=== PATIENT | female | born 1950 | race Caucasian/White ===

== ENCOUNTER 2024-09-08 21:13 | Inpatient (IN) | payer MEDICARE, MEDICAID, SELFPAY ==
[2024-09-08] VITALS (10 sets, daily range): BP systolic 93–118; BP diastolic 56–65; BMI 20.8
[2024-09-08 17:23] LABS: ALT (SGPT) 43 U/L (0-35); AST (SGOT) 42 U/L (14-36); Albumin 3.5 g/dl (3.5-5.0); Alkaline Phosphatase 50 U/L (38-126); Blood Urea Nitrogen 37 mg/dl (7-17); Calcium 9.1 mg/dl (8.4-10.2); Carbon Dioxide 23 mmol/L (22-30); Chloride 101 mmol/L (98-107); Estimated Creatinine Clearance 67 ml/min; Glucose 203 mg/dl (70-99); Potassium 3.9 mmol/L (3.5-5.1); Sodium 133 mmol/L (135-145); Total Protein 6.1 g/dl (6.3-8.2); eGFR > 60.00
[2024-09-08 17:29] LABS: COVID-19 Antigen Negative (Negative)
--- NOTE | 2024-09-08 17:48 | ED.GENMED ---
History of Present Illness
<Anaid Celestin MD - Last Filed: 09/08/24 17:50>
General
Chief Complaint: Change in Mental Status
Time Seen by Provider: 09/08/24 17:29
<Alla Novoa PA-C - Last Filed: 09/09/24 00:39>
General
Source: [facility]
Exam Limitations: altered mental status
Nursing documentation reviewed up to this point in time: agreed with
History of Present Illness
History of Present Illness:
Patient is a 74-year-old female with history schizophrenia, [place]'s disease presenting to the emergency department via nursing facility for evaluation of altered mental status and fever. Apparently patient was not at her baseline mental status
morning and was found to have a temp of 103.1F. Patient seemed much weaker than usual. In addition�she was incontinent to urine which is not typical for patient.
I did personally call and speak to the nursing facility given patient is unable to contribute to history given altered mental status. They deny noticing any recent cough. Patient has not been complaining of any chest pain or shortness of breath.
No abdominal pain complaints.
Past History
<Anaid Celestin MD - Last Filed: 09/08/24 17:50>
Past History
ED Past Medical History: Other (He has a history of mild dementia)
ED Past Surgical History: None
Social History
Personal: Single
Living: alone
Employment: Retired
Review of Systems
<Alla Novoa PA-C - Last Filed: 09/09/24 00:39>
Review of Systems
Allergies reviewed?: Yes
All Other Systems: ROS reviewed and negative except as documented in HPI and ROS
Phy Exam
<Alla Novoa PA-C - Last Filed: 09/09/24 00:39>
Physical Exam
Physical Exam:
Vitals: Hypoxic, febrile.
General: Patient is frail appearing, no acute distress
Skin: Warm and dry, no rashes or lesions
Head: Normocephalic, atraumatic
Eyes: Sclera nonicteric. EOMs intact. No nystagmus.
Throat: Dry oral mucosa. protecting airway
Neck: Normal ROM, no cervical spine tenderness, no meningismus
Cardiac: Regular rate and rhythm, no murmurs.
Pulm: Hypoxic with O2 of 88 on room air. Placed on 6 L nasal cannula. Coarse lung sounds.
Abdomen: Abdomen soft. No abdominal tenderness.
Extremities: No evidence of cyanosis or edema. Palpable peripheral pulses in bilateral upper and lower extremity
Neuro: AAOx3. Limited speech. Follows some commands. Moving all extremities.
Psychiatric: Normal affect.
Sepsis
<Anaid Celestin MD - Last Filed: 09/08/24 17:50>
Sepsis Screen
Sepsis Screen: Possible Sepsis
Date: 09/08/24
Time: 17:48
<Alla Novoa PA-C - Last Filed: 09/09/24 00:39>
Sepsis Screening
Sepsis Assessment: Sepsis
Sepsis Screening: Lactate >2mmol/L and Worsening O2 Saturation
Sepsis Screen
Sepsis Screen: Sepsis
Date: 09/09/24
Time: 00:29
Course
<Anaid Celestin MD - Last Filed: 09/08/24 17:50>
Orders/Labs/Results
Orders:
Orders
09/08/24 16:45
COVID-19 Antigen Urgent
Source: Nasal Swab
Complete Blood Count/With Diff Urgent
Comprehensive Metabolic Panel Urgent
Manual Differential Urgent
Influenza A+B Rapid Molecular Urgent
NURIS Source: Nasal Swab
Specimen Description:
09/08/24 16:56
Chest [CR Chest - 2 Views ] Urgent
Comment:
Reason For Exam: sob
09/08/24 17:39
CT Head W/o Iv Contrast Urgent
Comment:
Reason For Exam: Altered mental status
Straight cath- Treatment ONCE
0.9% Sodium Chloride 1000 ml [Nss] 1,000 ml IV BOLUS
09/08/24 17:40
Electrocardiogram (*1) Urgent
Reason for Study: Fatigue / Weakness
EKG- Treatment ONCE
Acetaminophen [Tylenol] 1,000 mg PO NOW STA
09/08/24 17:45
Acetaminophen [Tylenol/Feverall] 650 mg RECTAL NOW STA
09/08/24 17:58
Lactic Acid Q4H
Comment: CANCEL 2nd LACTIC ACID IF 1st LACTIC ACID IS LESS THAN 2
Blood Culture Q30M
NURIS Source: Blood/Venous
Specimen Description:
Blood Culture Q30M
NURIS Source: Blood/Venous
Specimen Description:
09/08/24 20:08
Azithromycin 500 mg/250 ml [Zithromax Infusion] 500 mg in 250 ml IV NOW
CefTRIAXone [Rocephin] 1,000 mg IV NOW STA
09/08/24 20:14
0.9% Sodium Chloride 1000 ml [Nss] 1,000 ml IV BOLUS
09/08/24 20:50
Admit/Transfer Patient As Directed
Co-Sign Provider:
Level of Care: Inpatient admission
Assign to:: IMU- Intermediate Care
Physician / Group: Carlos
Diagnosis: Pneumonia, Sepsis
Reason for Hospitalization: Pneumonia, Sepsis
Expected length of stay greater than two midnights?: Yes
ELOS- Estimated Length of Stay in days: 3
I certify the patient meets the requirements for IP care: Yes
PRN Pain Medication Management As Directed
May give lesser potent ordered pain med per pt: Yes
preference::
Protocol:: Medication orders for pain may be administered in a
manner that supports deferring to patient preference
when the pt is:
- Requesting an ordered lesser potent pain medication.
Least to most potent pain medications are defined
as: acetaminophen < NSAID < tramadol < opioids
(morphine, oxycodone, hydromorphone).
- Requesting a lesser dose of the same medication IF
ORDERED.
- Requesting a less intrusive route of administration
if both routes are prescribed by the provider (PO <
IV).
09/08/24 20:51
Code Status As Directed
Resuscitation Status: Full Code
09/08/24 21:31
Urinalysis Reflex To Culture Urgent
Date Specimen was Collected: 09/08/24
Time Specimen was Collected: 21:29
09/08/24 21:35
Lactic Acid Q4H
Comment: CANCEL 2nd LACTIC ACID IF 1st LACTIC ACID IS LESS THAN 2
09/09/24 00:10
Acetaminophen [Tylenol] 650 mg PO Q4HPRN PRN
Albuterol Nebs [Ventolin Nebules] 2.5 mg INH R Q4HPRN PRN
CefTRIAXone [Rocephin] 1,000 mg IV Q24H
Dextrose 50%-Water [Dextrose 50% Syringe] 12.5 grams IV [id number] PRN
Glucagon [GlucaGen] 1 mg IM PRN PRN
Lactated Ringers [Lr] 1,000 ml IV 125 mls/hr
Mirtazapine [Remeron] 15 mg PO HS
Polyethylene Glycol Powder [Miralax] 17 grams PO DAILY PRN
Sennosides [Senokot] 17.2 mg PO HS
09/09/24 00:10
TSH Reflex To Free T4 Routine
Activity As Directed
Activity Level: Ambulate
With Assistance
Bedside Glucose Monitoring As Directed
Frequency: AC&HS
Additional Instructions:: Change to q6h if pt on TPN, tube feeding or not eating
Bladder Scan As Directed
Follow Bladder Retention/Intermittent Cath Algorithm?: Yes
PRN if no void in __ hours: 6
Frequency: Per Retention Algorithm
If Bladder Scan Result >: 400
then:: Straight cath
EKG with chest pain [ECG as needed] As Directed
ECG as needed for:: Chest Pain
I/O [Intake/ Output] As Directed
Frequency: Per unit guidelines
Neurological Checks As Directed
Frequency: q4h
Precautions As Directed
Type of Precautions: Aspiration
Straight Cath As Directed
Frequency: Per Retention Algorithm
Additional Instructions: straight cath as needed per acute urinary retention algorithm for 24 hrs
Additional Instructions: for bladder scan greater than 400 mL
Vital Signs As Directed
Frequency: Per unit guidelines
Weight As Directed
Frequency: Daily
Chest PT [Rx Chest Pt] [RESP] Routine
Special Instructions: BID
Oxygen Therapy [O2 Therapy] [RESP] Routine
Titrate/Wean O2 to maintain O2 sat greater than (%): 94
Ot Eval And Treat Routine
PT Consult [Pt Eval And Treat] Routine
Activity Level: Ambulate
With Assistance
Speech Therapy Eval & Treat Routine
DX Deep Vein Thrombosis Video Routine
09/09/24 06:00
EKG [Electrocardiogram (*1)] IN AM
Reason for Study: Chest Pain
Regular
Basic Metabolic Panel IN AM
Complete Blood Count/No Diff IN AM
Glycohemoglobin (HgbA1c) IN AM
LFT [Drzjg-Aoxy-Uatlwkr] IN AM
Lactic Acid IN AM
Magnesium IN AM
09/09/24 07:30
Insulin Aspart Corrective Low [Novolog Flexpen-Low Resistance] See Protocol SC AC
09/09/24 08:00
Doxycycline [Vibramycin] 100 mg PO Q12
Haloperidol [Haldol] 2 mg PO BID
09/09/24 18:00
Enoxaparin Sodium [Lovenox] 40 mg SC QPM
Abnormal Lab Results
09/08/24 09/08/24
16:45 17:58
WBC 12.0 H 10^3/uL
(4.8-10.8)
RBC 3.72 L 10^6/uL
(4.20-5.40)
Hgb 11.9 L g/dL
(12.0-16.0)
Hct 35.9 L %
(37.0-47.0)
MCH 32.0 H pg
(27.0-31.0)
MPV 10.8 H fL
(7.4-10.4)
Abs Neuts (Manual) 9.7 H 10^3/uL
(1.4-6.5)
Band Neutrophils 21 H %
(0-3)
Lymphocytes (Manual) 9 L %
(20-51)
Monocytes (Manual) 10 H %
(2-9)
Sodium 133 L mmol/L
(135-145)
BUN 37 H mg/dl
(7-17)
Glucose 203 H mg/dl
(70-99)
Lactic Acid 2.1 H mmol/L
(0.7-2.0)
AST 42 H U/L
(14-36)
ALT 43 H U/L
(0-35)
Total Protein 6.1 L g/dl
(6.3-8.2)
09/08/24 16:45
09/08/24 16:45
Vital Signs
Initial and Last Documented VS:
Initial Vital Signs
Pulse Resp BP
92 23 100/57
09/08/24 16:28 09/08/24 16:28 09/08/24 16:28
Last Documented Vital Signs
Temp Pulse Resp BP Pulse Ox
100.7 F H 78 28 110/72 94
09/09/24 00:12 09/09/24 00:07 09/09/24 00:07 09/09/24 00:07 09/09/24 00:07
<Alla Novoa PA-C - Last Filed: 09/09/24 00:39>
Orders/Labs/Results
Orders:
Orders
09/08/24 16:45
COVID-19 Antigen Urgent
Source: Nasal Swab
Complete Blood Count/With Diff Urgent
Comprehensive Metabolic Panel Urgent
Manual Differential Urgent
Influenza A+B Rapid Molecular Urgent
NURIS Source: Nasal Swab
Specimen Description:
09/08/24 16:56
Chest [CR Chest - 2 Views ] Urgent
Comment:
Reason For Exam: sob
09/08/24 17:39
CT Head W/o Iv Contrast Urgent
Comment:
Reason For Exam: Altered mental status
Straight cath- Treatment ONCE
0.9% Sodium Chloride 1000 ml [Nss] 1,000 ml IV BOLUS
09/08/24 17:40
Electrocardiogram (*1) Urgent
Reason for Study: Fatigue / Weakness
EKG- Treatment ONCE
Acetaminophen [Tylenol] 1,000 mg PO NOW STA
09/08/24 17:45
Acetaminophen [Tylenol/Feverall] 650 mg RECTAL NOW STA
09/08/24 17:58
Lactic Acid Q4H
Comment: CANCEL 2nd LACTIC ACID IF 1st LACTIC ACID IS LESS THAN 2
Blood Culture Q30M
NURIS Source: Blood/Venous
Specimen Description:
Blood Culture Q30M
NURIS Source: Blood/Venous
Specimen Description:
09/08/24 20:08
Azithromycin 500 mg/250 ml [Zithromax Infusion] 500 mg in 250 ml IV NOW
CefTRIAXone [Rocephin] 1,000 mg IV NOW STA
09/08/24 20:14
0.9% Sodium Chloride 1000 ml [Nss] 1,000 ml IV BOLUS
09/08/24 20:50
Admit/Transfer Patient As Directed
Co-Sign Provider:
Level of Care: Inpatient admission
Assign to:: IMU- Intermediate Care
Physician / Group: [facility]
Diagnosis: Pneumonia, Sepsis
Reason for Hospitalization: Pneumonia, Sepsis
Expected length of stay greater than two midnights?: Yes
ELOS- Estimated Length of Stay in days: 3
I certify the patient meets the requirements for IP care: Yes
PRN Pain Medication Management As Directed
May give lesser potent ordered pain med per pt: Yes
preference::
Protocol:: Medication orders for pain may be administered in a
manner that supports deferring to patient preference
when the pt is:
- Requesting an ordered lesser potent pain medication.
Least to most potent pain medications are defined
as: acetaminophen < NSAID < tramadol < opioids
(morphine, oxycodone, hydromorphone).
- Requesting a lesser dose of the same medication IF
ORDERED.
- Requesting a less intrusive route of administration
if both routes are prescribed by the provider (PO <
IV).
09/08/24 20:51
Code Status As Directed
Resuscitation Status: Full Code
09/08/24 21:31
Urinalysis Reflex To Culture Urgent
Date Specimen was Collected: 09/08/24
Time Specimen was Collected: 21:29
09/08/24 21:35
Lactic Acid Q4H
Comment: CANCEL 2nd LACTIC ACID IF 1st LACTIC ACID IS LESS THAN 2
09/09/24 00:10
Acetaminophen [Tylenol] 650 mg PO Q4HPRN PRN
Albuterol Nebs [Ventolin Nebules] 2.5 mg INH R Q4HPRN PRN
CefTRIAXone [Rocephin] 1,000 mg IV Q24H
Dextrose 50%-Water [Dextrose 50% Syringe] 12.5 grams IV [id number] PRN
Glucagon [GlucaGen] 1 mg IM PRN PRN
Lactated Ringers [Lr] 1,000 ml IV 125 mls/hr
Mirtazapine [Remeron] 15 mg PO HS
Polyethylene Glycol Powder [Miralax] 17 grams PO DAILY PRN
Sennosides [Senokot] 17.2 mg PO HS
09/09/24 00:10
TSH Reflex To Free T4 Routine
Activity As Directed
Activity Level: Ambulate
With Assistance
Bedside Glucose Monitoring As Directed
Frequency: AC&HS
Additional Instructions:: Change to q6h if pt on TPN, tube feeding or not eating
Bladder Scan As Directed
Follow Bladder Retention/Intermittent Cath Algorithm?: Yes
PRN if no void in __ hours: 6
Frequency: Per Retention Algorithm
If Bladder Scan Result >: 400
then:: Straight cath
EKG with chest pain [ECG as needed] As Directed
ECG as needed for:: Chest Pain
I/O [Intake/ Output] As Directed
Frequency: Per unit guidelines
Neurological Checks As Directed
Frequency: q4h
Precautions As Directed
Type of Precautions: Aspiration
Straight Cath As Directed
Frequency: Per Retention Algorithm
Additional Instructions: straight cath as needed per acute urinary retention algorithm for 24 hrs
Additional Instructions: for bladder scan greater than 400 mL
Vital Signs As Directed
Frequency: Per unit guidelines
Weight As Directed
Frequency: Daily
Chest PT [Rx Chest Pt] [RESP] Routine
Special Instructions: BID
Oxygen Therapy [O2 Therapy] [RESP] Routine
Titrate/Wean O2 to maintain O2 sat greater than (%): 94
Ot Eval And Treat Routine
PT Consult [Pt Eval And Treat] Routine
Activity Level: Ambulate
With Assistance
Speech Therapy Eval & Treat Routine
DX Deep Vein Thrombosis Video Routine
09/09/24 06:00
EKG [Electrocardiogram (*1)] IN AM
Reason for Study: Chest Pain
Regular
Basic Metabolic Panel IN AM
Complete Blood Count/No Diff IN AM
Glycohemoglobin (HgbA1c) IN AM
LFT [Fkwje-Ayzx-Hdorjeo] IN AM
Lactic Acid IN AM
Magnesium IN AM
09/09/24 07:30
Insulin Aspart Corrective Low [Novolog Flexpen-Low Resistance] See Protocol SC AC
09/09/24 08:00
Doxycycline [Vibramycin] 100 mg PO Q12
Haloperidol [Haldol] 2 mg PO BID
09/09/24 18:00
Enoxaparin Sodium [Lovenox] 40 mg SC QPM
Abnormal Lab Results
09/08/24 09/08/24
16:45 17:58
WBC 12.0 H 10^3/uL
(4.8-10.8)
RBC 3.72 L 10^6/uL
(4.20-5.40)
Hgb 11.9 L g/dL
(12.0-16.0)
Hct 35.9 L %
(37.0-47.0)
MCH 32.0 H pg
(27.0-31.0)
MPV 10.8 H fL
(7.4-10.4)
Abs Neuts (Manual) 9.7 H 10^3/uL
(1.4-6.5)
Band Neutrophils 21 H %
(0-3)
Lymphocytes (Manual) 9 L %
(20-51)
Monocytes (Manual) 10 H %
(2-9)
Sodium 133 L mmol/L
(135-145)
BUN 37 H mg/dl
(7-17)
Glucose 203 H mg/dl
(70-99)
Lactic Acid 2.1 H mmol/L
(0.7-2.0)
AST 42 H U/L
(14-36)
ALT 43 H U/L
(0-35)
Total Protein 6.1 L g/dl
(6.3-8.2)
09/08/24 16:45
09/08/24 16:45
Vital Signs
Initial and Last Documented VS:
Initial Vital Signs
Pulse Resp BP
92 23 100/57
09/08/24 16:28 09/08/24 16:28 09/08/24 16:28
Last Documented Vital Signs
Temp Pulse Resp BP Pulse Ox
100.7 F H 78 28 110/72 94
09/09/24 00:12 09/09/24 00:07 09/09/24 00:07 09/09/24 00:07 09/09/24 00:07
<Alla Novoa PA-C - Last Filed: 09/09/24 00:39>
MDM/Problems Addressed
Differential Diagnosis Includes:
Not limited to: Sepsis, septic shock, pneumonia, UTI, viral illness, etc.
MDM/Problems Addressed:
74 old female with dementia presenting due to altered mental status and fever. Patient febrile to 100.7 F on arrival, tachypneic and hypoxic on room air. On exam�patient is alert and oriented x 3. She follows basic commands. Abdomen is soft and
nontender. She does have dry oral mucosa. She was placed on 6 L nasal cannula and is oxygenating at 95%. She does have coarse lung sounds throughout. Heart regular rate and rhythm. Concern for likely infectious source and possible sepsis.
Blood pressure is stable. Will give IV fluids. Patient was given 650MG rectal Tylenol. Will check basic labs, lactic, viral swabs. Will send blood cultures. Will obtain urinalysis, chest x-ray, and head CT given altered mental status. Do not
suspect CVA. Patient will require admission. Will closely monitor and reassess.
Update: Labs reviewed. Mild leukocytosis of 12. Chemistry does show hyperglycemia without any other clinically significant abnormalities. Initial lactic was mildly elevated 2.1. repeat pending. Chest x-ray resulted which shows right basilar
opacity suspicious for pneumonia. Likely source of infection. Patient does meet sepsis criteria. EKG shows no QT prolongation. Will initiate IV Rocephin and azithromycin in emergency department. Patient given second liter of IV fluids.
Although suspect pulmonary source/will still obtain urinalysis to rule out in camera urinary tract infection. Head CT without acute abnormalities.
Patient admitted to hospitalist service in stable condition for sepsis secondary to pneumonia. Antibiotics initiated emergency department and 2 L of IV fluids given.
Chronic conditions affecting care:
Dementia
Acute Exacerbation and/or Progression of Chronic Illness:
N/A
<Alla Novoa PA-C - Last Filed: 09/09/24 00:39>
*Radiology
Radiology exam reviewed: preliminary read by ED provider (Right basilar opacity) and radiology read reviewed
*Pulse Oximetry
Patient hypoxic: yes (Placed on 6 L nasal cannula)
*EKG
Interpreted by ED Provider?: Yes
EKG Intrepretation Date: 09/08/24
Interpretation: normal
Comparison EKG: changes noted
Heart Rate: 81
Rate: normal
Rhythm: sinus
[place]: normal axis
QRS Pattern: normal QRS
Ischemia: non-specific ST changes
*Min[employer]er Interpretation
Rate: normal
Interpretation: normal
Heart Rate: 88
Rhythm: sinus
*Critical Care Note
Total Time (30-74mins, 75-104mins- exclusive of procedures): Not Applicable
<Alla Novoa PA-C - Last Filed: 09/09/24 00:39>
Patient Management
Discussion with other providers: Hospitalist
ED Attending Note
<Anaid Celestin MD - Last Filed: 09/08/24 17:50>
ED Attending Note
Patient seen and examined by attending physician: Yes
I performed the substantive portion of visit, reviewed & personally made and approve the management plan that is documented in note by myself or HOLLIE.: Yes
ED Attending Note:
I have seen and evaluated the patient with a [id number] encounter. I have spoken to the [PA] and involved in the medical history, the physical exam, medical decision making.
Evaluation and management service: agree unless noted differently below.
Results interpretation: agree unless noted differently below.
74-year-old woman with history of dementia presenting to the emergency department fever and change in mental status. Per medics the call was for altered mental status when they arrived patient was febrile and confused. Patient herself has no
complaints. Vital signs here notable for blood pressure in the low 100s. Exam does show woman who is ANO x 3 and does have coarse breath sounds in all lung foster. She does have dry oral mucosa. Differential could beseptic from pneumonia versus
UTI. Given that she does not have any focal neurodeficits less likely to be CVA. Will complete broad workup. Patient will need admission. Patient's CODE STATUS per paperwork is full code.
-
Portions of this chart may have been created with voice recognition software.� Occasional wrong word or��sound alike� substitutions may have occurred due to the inherent limitations of voice recognition software.
Discharge Plan
Departure
Patient Disposition: Admit
Date of Disposition: 09/08/24
Time of Disposition: 20:13
Presentation/result/management discussed w/ accepting MD/DO: Hospitalist
Covid-19: Negative COVID-19
Discharge Problem:
Sepsis, Community acquired pneumonia of right lung, Hypoxia
Interventions
Interventions:
*Risk Screen - Suicide Last Done: 09/08/24 16:38
*General Assessment Last Done: 09/08/24 17:29
*Neglect/Abuse Screening Last Done: 09/08/24 17:29
ED- Fall Risk Assessment Last Done: 09/08/24 17:29
*ED COVID-19 Vaccine History Last Done: 09/08/24 17:29
*Nursing Disposition Last Done: 09/08/24 23:21
ED- Neurological Assessment Last Done: 09/08/24 17:29
ED Swallowing Screen Last Done: 09/08/24 20:41
Discharge Date and Time
Discharge Date/Time: 09/09/24 00:13
[2024-09-08] MEDS: TYLENOL/FEVERALL 650 MG RECTAL (17:52)
[2024-09-08] MEDS: NSS 1000 IV ×2 (17:56→20:19)
[2024-09-08 18:02] LABS: Absolute Neutrophils -Man Diff 9.7 10^3/uL (1.4-6.5); Band Neutrophils 21 % (0-3); Hematocrit 35.9 % (37.0-47.0); Hemoglobin 11.9 g/dL (12.0-16.0); Lymphocytes 9 % (20-51); Mean Corp Hgb Conc. 33.1 g/dL (33.0-37.0); Mean Corpuscular Volume 96.5 fL (81.0-99.0); Mean Platelet Volume 10.8 fL (7.4-10.4); Monocytes 10 % (2-9); Normal RBC Morphology Yes; Platelet Count 168 10^3/uL (130-400); Platelets Checked Yes; Red Blood Cell Count 3.72 10^6/uL (4.20-5.40); Red Cell Dist. Width 13.2 % (11.5-14.5); Segmented Neutrophils 60 % (42-75); Total Cells Counted 100
[2024-09-08 18:19] LABS: Lactic Acid 2.1 mmol/L (0.7-2.0)
--- NOTE | 2024-09-08 20:19 | EDRN ---
RN attempted ordered straight cath. after infusion of first IV bolus. RN able to pass catheter w/o resistance, but no urine output. Prior RN had same issue. Pt.'s perineal area cleansed thoroughly, will attempt clean catch urine collection when pt.
reports need to urinate.
[2024-09-08] MEDS: ROCEPHIN 1000 MG IV (20:27)
--- NOTE | 2024-09-08 20:29 | HPS.HSE ---
Addendum entered and electronically signed by Sandip Gonzalez DO 09/08/24 21:15:
Patient seen and examined independently. Agree with findings and plan as set forth by AMIRA Dodge.
Patient is a 74y F with PMH significant for movement disorder, ? Houghton's, ? schizophrenia who [facility] of altered mental status and fever. Patient is pleasantly confused here in the ED and denies any
complaints. She is noted to be febrile to 102.7 with hypoxemia and CXR showing R base infiltrate.
Ass:
RLL Pneumonia
Sepsis secondary to the above
Acute Hypoxemic Respiratory Insufficiency secondary to the above
Hyperglycemia
Movement Disorder
- ? Schizophrenia / Antipsychotic Effect
- ? Houghton's Disease
Plan:
Admit for further evaluation and treatment.
Abx for CAP.
Supportive care including O2 support, IVFs +/- pressors to maintain perfusion.
Continue Haldol 2mg BID.
Monitor on telemetry. No QT prolongation noted on initial EKG.
Would avoid other QT prolonging agents.
Follow for clinical improvement.
Monitor glucose, SSI if needed, check A1C.
Original Note:
Family Physician
-
Family Physician: Caleb Maguire
Chief Complaint
-
Change in mental status and fever
History of Present Illness
Patient is a 74-year-old female with past medical history significant for Huntingtons disease, hyperlipidemia, schizophrenia and anorexia who presented to [facility] ED for evaluation of change in mental status and fever. Emergency room staff spoke
with facility staff who reported patient mental status was not at baseline, she was febrile and and weaker than normal so she was sent in for evaluation. They also reported that patient had an episode of incontinence and she is normally not
incontinent. Patient is pleasantly confused and denies any symptoms or not feeling well.
Medical History
Past Medical History
Past Medical History: Reports Other
Additional Past Medical History:
Huntingtons disease
hyperlipidemia
schizophrenia
anorexia
Past Surgical History: Reports None
Social History
Unable to obtain full social history at this time due to: Dementia
Tobacco: Former Smoker
Alcohol: Former
Living: Jail
Family History
Family History: Not pertinent and Unable to Obtain
Allergies / Home Medications
Allergies reflects when Allergies were last updated in [employer].
Home Medications with original date entered in [employer]
Allergy/Medication List:
Allergies
Allergy/AdvReac Type Severity Reaction Status Date / Time
No Known Allergies Allergy Unverified 04/12/11 17:02
Home Medications
acetaminophen 325 mg tablet 650 mg PO Q4HPRN PRN mild pain/temp>101 09/08/24
bisacodyl 10 mg rectal suppository (Dulcolax (bisacodyl)) 10 mg WI DAILYPRN PRN if mom ineffective after 24 hrs 09/08/24
coal tar 0.5 % shampoo 1 applic topical TUFR 09/08/24
haloperidol 2 mg tablet 2 mg PO BID 09/08/24
haloperidol 5 mg tablet 5 mg PO DAILY 09/08/24
magnesium hydroxide 400 mg/5 mL oral suspension (Milk of Magnesia) 30 ml PO [id number] PRN no bm in 3 days 09/08/24
mirtazapine 15 mg tablet (Remeron) 15 mg PO HS 09/08/24
sodium phosphates 19 gram-7 gram/118 mL enema (Fleet Enema) 118 ml WI DAILYPRN PRN constipation 09/08/24
Review of Systems
-
Unable to obtain full review of systems at this time due to: Dementia
Constitutional: Reports Fever
EENT: Reports No Symptoms
Respiratory: Reports No Symptoms
Cardiac: Reports No Symptoms
Abdomen/GI: Reports No Symptoms
: Reports No Symptoms
Musculoskeletal: Reports No Symptoms
Skin: Reports No Symptoms
Neurological: Reports Other (change in mental status )
Endocrine: Reports No Symptoms
Hematologic/Lymphatic: Reports No Symptoms
Psych: Reports No Symptoms
Physical Exam
Vital Signs
Vital Signs
Temp Pulse Resp BP Pulse Ox
102.7 F H 74 31 93/56 96
09/08/24 16:38 09/08/24 20:15 09/08/24 17:45 09/08/24 20:06 09/08/24 20:15
Physical Exam
General: Well Developed, Well Nourished, No Apparent Distress, Comfortable and Conversant
HEENT: NormoCephalic, Moist mucous membranes, Atraumatic, [place] Conjunctivae, Nose Appears Normal and Ears Appear Normal
Respiratory: Clear, Crackles and Non Labored Respirations
Cardiac: S1/S2 and Regular Rhythm; No Murmur, Rub or Gallop
Breast: Deferred by me
GI: Soft, Non Tender, Non Distended and Normal Bowel Sounds; No Organomegaly
Rectal: Deferred by Provider
Genito-urinary: Deferred by me
Musculoskeletal: No Clubbing, No Cyanosis and No Edema
Skin: No Rash
Neuro: Awake, Alert and Nonfocal/grossly intact
Hematologic/Lymphatic: No Lymphadenopathy
Psych: Calm and Intact Judgment/Insight
Laboratory Results
-
09/08/24 16:45
09/08/24 16:45
Laboratory Results
Lactic Acid 2.1 mmol/L (0.7-2.0) H 09/08/24 17:58
Total Bilirubin 1.0 mg/dl (0.2-1.3) 09/08/24 16:45
AST 42 U/L (14-36) H 09/08/24 16:45
ALT 43 U/L (0-35) H 09/08/24 16:45
Alkaline Phosphatase 50 U/L (38-126) 09/08/24 16:45
Data Reviewed
-
Diagnostic Radiology: Report Reviewed by me (CXR: Moderate right basilar pneumonia)
CT Scan: Report Reviewed by me (Head CT: There are no focal or acute intracranial abnormalities There is moderate diffuse cortical and cerebellar atrophy)
Medical Tests (Nuc Med, Echo, EKG etc): Report Reviewed by me (CXR: NORMAL SINUS RHYTHM NONSPECIFIC T WAVE ABNORMALITY)
Lab Data: Labs Reviewed by me
Impression/Plan
-
IMPRESSION/PLAN:
#Sepsis 2/2 Pneumonia
WBC 12.0, Lactic 2.1, T 102.7, BP 93/56
CXR: Moderate right basilar pneumonia
Head CT: There are no focal or acute intracranial abnormalities
There is moderate diffuse cortical and cerebellar atrophy
- Admit to IMU
- Blood cultures and UA pending
- Covid and Influenza negative
- trend Lactic
- PRN Albuterol Nebs
- IV Ceftriaxone
- PO Doxycycline
- IVF
#Huntingtons disease
#schizophrenia
- continue haloperidol and mirtazapine
#hyperlipidemia
#anorexia
Code Status: Full Code
DVT Prophylaxis: Lovenox Sq
[2024-09-08] MEDS: ZITHROMAX INFUSION 250 IV (20:37)
[2024-09-08 21:37] LABS: Urine Albumin Trace (Neg - Trace); Urine Bilirubin Negative (Negative); Urine Character Clear (Clear); Urine Color Yellow; Urine Glucose Negative (Negative); Urine Ketone Negative (Negative); Urine Leukocyte Negative (Negative); Urine Nitrite Negative (Negative); Urine Occult Blood Trace (Negative); Urine Urobilinogen Negative (Neg - 1+)
[2024-09-08 21:44] LABS: Urine Bacteria Few (Negative); Urine Red Blood Cell 0-2 /HPF (0-2); Urine Squamous Cell 0-2 /LPF (Few); Urine White Cell 0-2 /HPF (0-5)
[2024-09-08 21:55] LABS: Lactic Acid 0.9 mmol/L (0.7-2.0)
[2024-09-09] VITALS (12 sets, daily range): BP systolic 92–111; BP diastolic 54–72; BMI 17.7; BMI 17.9
[2024-09-09] MEDS: SENOKOT 17.2 MG PO ×2 (01:19→21:21)
[2024-09-09] MEDS: LR 1000 IV ×3 (01:20→17:41)
[2024-09-09] MEDS: REMERON 15 MG PO ×2 (01:20→21:20)
[2024-09-09 05:27] LABS: Hematocrit 35.3 % (37.0-47.0); Hemoglobin 11.2 g/dL (12.0-16.0); Mean Corp Hgb Conc. 31.7 g/dL (33.0-37.0); Mean Corpuscular Hgb 31.8 pg (27.0-31.0); Mean Corpuscular Volume 100.3 fL (81.0-99.0); Mean Platelet Volume 10.5 fL (7.4-10.4); Platelet Count 147 10^3/uL (130-400); Red Blood Cell Count 3.52 10^6/uL (4.20-5.40); Red Cell Dist. Width 13.2 % (11.5-14.5); White Blood Cell Count 10.9 10^3/uL (4.8-10.8)
[2024-09-09 05:40] LABS: ALT (SGPT) 43 U/L (0-35); AST (SGOT) 46 U/L (14-36); Albumin 2.9 g/dl (3.5-5.0); Alkaline Phosphatase 43 U/L (38-126); Blood Urea Nitrogen 19 mg/dl (7-17); Calcium 8.4 mg/dl (8.4-10.2); Carbon Dioxide 26 mmol/L (22-30); Chloride 108 mmol/L (98-107); Direct Bilirubin 0.1 mg/dl (0.0-0.4); Estimated Creatinine Clearance 78 ml/min; Glucose 110 mg/dl (70-99); Magnesium 2.2 mg/dl (1.6-2.3); Potassium 4.2 mmol/L (3.5-5.1); Sodium 138 mmol/L (135-145); Total Bilirubin 1.6 mg/dl (0.2-1.3); Total Protein 5.5 g/dl (6.3-8.2); eGFR > 60.00
[2024-09-09 06:08] LABS: TSH Reflex To Free T4 1.51 uIU/ml (0.47-4.68)
[2024-09-09] MEDS: HALDOL 2 MG PO ×2 (08:00→21:19)
[2024-09-09] MEDS: VIBRAMYCIN 100 MG PO ×2 (08:00→21:21)
[2024-09-09 08:36] LABS: Glycohemoglobin (HgbA1c) 5.4 % (4.0-5.6)
--- NOTE | 2024-09-09 08:55 | PTOTSP ---
Speech Language Pathology
Pt seen for clinical beside swallow evaluation. P.O. trials of puree and thin liquids via cup/straw provided. Difficulty with cup with difficulty closing lips effectively around cup wit resultant incoordination and coughing episode. No coughing
noted with puree or thin liquids via single straw sips. Pt declined regular solids, stating these would be too hard for her to chew. Pt with current RLL PNA.
Recommend:
(1) VSE
(2) Downgrade to IDDSI Level 4 (puree) and thin liquids
(3) Aspiration precautions: sit upright, slow rate, single sips, full supervision with assist as needed
(4) Meds crushed in puree as able
(5) [employer] PACKAGE AND BUNDLE SORTER CLERK to continue to follow
[2024-09-09] MEDS: ProAmatine 5 MG PO ×3 (09:00→17:43)
[2024-09-09 09:12] LABS: Glucose - Point of Care 99 mg/dl (70-99)
[2024-09-09] MEDS: NOVOLOG FLEXPEN-LOW RESISTANCE SC ×2 (09:46→13:27)
--- NOTE | 2024-09-09 10:27 | CM ---
CM following re: discharge planning.
Reviewed pt's chart, met with pt and spoke to pt's daughter Adwoa
Pt is a 74 year old female, admitted with primary dx of PNA, Sepsis.
Pt is not a great historian, stated she 'lives here'. Per daughter, pt has been a long-term care resident at [facility] since 2010, ambulates with a walker and uses a wheelchair. Pt is on Medicaid 15 day bed hold.
D/C plan: return back to [facility] for a long-term care.
CM will follow with discharge plan updates as hospitalization progresses
--- NOTE | 2024-09-09 10:50 | PTOTSP ---
Speech Language Pathology
VIDEOFLUOROSCOPIC SWALLOWING EXAMINATION (VSE) completed. Mod pharyngeal dysphagia noted. Pt typically with more than single swallow. After first swallow, collection of residue noted in vallecula and pyriform sinuses after thin liquids via cup,
but with subsequent swallow, this cleared. Otherwise, trace base of tongue and pyriform sinus residue noted intermittently.
Thin liquids via cup resulted in silent aspiration (PAS 8). Thin liquids via consecutive straw sips resulted in at least supraglottic penetration with suspected penetration to the level of the vocal folds (PAS 5). Difficult to view given residual
penetrated material. Cued cough weak and ineffective. No other penetration/aspiration noted.
Recommend:
(1) IDDSI Level 4 (Puree) and Mildly thick liquids
(2) Aspiration precautions: full supervision with assist as needed, slow rate, sit upright
(3) Meds crushed in puree as able
(4) VIOLIN MAKER HAND to continue to follow
[2024-09-09 12:21] LABS: Glucose - Point of Care 105 mg/dl (70-99)
--- NOTE | 2024-09-09 13:28 | W.PN.HOSP.TC ---
Today's Communication/Plan
-
Decrease IV fluid rate
Continue with antibiotic
Modified diet
Start midodrine
PT and OT
Assessment / Plan
Assessment / Plan
General: Well Developed, Well Nourished, No Apparent Distress, Comfortable and Conversant
HEENT: NormoCephalic, Moist mucous membranes, Atraumatic, [place] Conjunctivae, Nose Appears Normal and Ears Appear Normal
Respiratory: Clear, Crackles and Non Labored Respirations
Cardiac: S1/S2 and Regular Rhythm; No Murmur, Rub or Gallop
GI: Soft, Non Tender, Non Distended and Normal Bowel Sounds; No Organomegaly
Musculoskeletal: No Clubbing, No Cyanosis and No Edema
Skin: No Rash
Neuro: Awake, Alert and Nonfocal/grossly intact
Hematologic/Lymphatic: No Lymphadenopathy
Psych: Calm and Intact Judgment/Insight
#Sepsis 2/2 aspiration pneumonia -poa
CXR: Moderate right basilar pneumonia
Head CT: There are no focal or acute intracranial abnormalities There is moderate diffuse cortical and cerebellar atrophy
- Blood cultures in lab
- UA normal
- Covid and Influenza negative
- trend Lactic-wnl
- PRN Albuterol Nebs
- IV Ceftriaxone
- PO Doxycycline
- IVF. Decrease weight. Start patient on midodrine.
Dysphagia
-Diet downgraded to pur�ed diet. Status post video swallow evaluation recommending mildly thick liquid.
# Toxic metabolic encephalopathy likely secondary to sepsis versus dehydration versus worsening of psych disorder
-Monitor mentation. Continue with Haldol.
#Huntingtons disease
#schizophrenia
- continue haloperidol and mirtazapine
# Transaminitis likely secondary to sepsis
-Trend for now. If it abdominal pain check abdominal ultrasound
#hyperlipidemia
#anorexia
Code Status: Full Code
DVT Prophylaxis: Lovenox
Called daughter to update no response left voicemail
Anticipated Discharge: > 48 hours
Subjective/Interval History
-
Date of Service: September 09, 2024
no overnight events
on oxygen
BP low.
passed shallow eval earlier
called dtr but no response
Objective Data
-
Labs:
Laboratory Results
09/09/24
04:55
WBC 10.9 H
Hgb 11.2 L
Hct 35.3 L
Plt Count 147
Sodium 138
Potassium 4.2
Chloride 108 H
Carbon Dioxide 26
BUN 19 H
Creatinine 0.5 L
Glucose 110 H
Calcium 8.4
Total Bilirubin 1.6 H
AST 46 H
ALT 43 H
Alkaline Phosphatase 43
Vital Signs:
Vital Signs
Temp Pulse Resp BP Pulse Ox
99.0 F 67 19 98/62 95
09/09/24 04:59 09/09/24 12:00 09/09/24 12:00 09/09/24 12:00 09/09/24 12:43
Data Reviewed
-
Total Time Spent with Patient (in minutes): 55
[2024-09-09 13:37] LABS: Glucose - Point of Care 92 mg/dl (70-99)
[2024-09-09] MEDS: NOVOLOG FLEXPEN-LOW RESISTANCE 1 UNITS SC (17:41)
[2024-09-09] MEDS: LOVENOX 40 MG SC (17:43)
[2024-09-09 17:45] LABS: Glucose - Point of Care 153 mg/dl (70-99)
--- NOTE | 2024-09-09 17:49 | PTCARENOTE ---
see nursing flowsheet pt alert and awake this shift. VSE done by speech and pt cleared for puree diet. appetite is good. iv fluids infusing. o2 sat 95 on 3 liters o2.pt denies shortness of bhreath. occasional moist cough noted.
[2024-09-09] MEDS: FLUSH (NSS) 10 FLUSH IV ×2 (21:19→21:58)
[2024-09-09] MEDS: ROCEPHIN 1000 MG IV (21:19)
[2024-09-09] MEDS: STERILE WATER FOR INJECTION 10 ML IV (21:20)
[2024-09-09 22:35] LABS: Glucose - Point of Care 93 mg/dl (70-99)
[2024-09-10] VITALS (11 sets, daily range): BP systolic 101–143; BP diastolic 55–79; PULSE 77; O2SAT 93; BMI 17.9
--- NOTE | 2024-09-10 01:33 | PTCARENOTE ---
Assumed care for patient overnight, received report from RN. Pt AAOx3 able to answer all orientation questions, slow answers and slightly garbled speech. Pt has involuntary movements of extremities. O2 sat 94%, weaned to 2L NC. Lungs coarse with
rhonchi. Denies any SOB or increase WOB, no tachypnea. Pills given crushed in applesauce, one episode of coughing. Pt grossly incontinent of urine, pt saturated brief and pad. Full bed bath and perineal care done. Oral care done with suction mouth
care kit. Re-attempting a pure-wick. Pt states she is unable to tell us when she voids. Educated on the use of the call lewis. Pt appears to be sleeping comfortably in bed, tolerating frequent repositioning and turning. Call lewis is within reach.
[2024-09-10 04:46] LABS: % Basophils 0.2 % (0-2); % Eosinophils 0.6 % (0-6); % Immature Granulocytes 0.3 % (0-0.5); % Lymphocytes 22.9 % (20.5-51.1); % Monocytes 5.1 % (1.7-9.3); % Neutrophils 70.9 % (42.2-75.2); Absolute Lymphocytes 1.5 10^3/uL (1.2-3.4); Absolute Monocytes 0.3 10^3/uL (0.1-0.6); Absolute Neutrophils 4.6 10^3/uL (1.4-6.5); Hematocrit 37.2 % (37.0-47.0); Mean Corp Hgb Conc. 32.3 g/dL (33.0-37.0); Mean Corpuscular Hgb 31.7 pg (27.0-31.0); Mean Corpuscular Volume 98.4 fL (81.0-99.0); Mean Platelet Volume 10.6 fL (7.4-10.4); Nucleated Red Blood Cells % 0 %; Platelet Count 157 10^3/uL (130-400); Red Blood Cell Count 3.78 10^6/uL (4.20-5.40); White Blood Cell Count 6.5 10^3/uL (4.8-10.8)
[2024-09-10 05:15] LABS: ALT (SGPT) 57 U/L (0-35); AST (SGOT) 63 U/L (14-36); Albumin 2.9 g/dl (3.5-5.0); Alkaline Phosphatase 46 U/L (38-126); Blood Urea Nitrogen 17 mg/dl (7-17); Calcium 8.5 mg/dl (8.4-10.2); Carbon Dioxide 24 mmol/L (22-30); Chloride 109 mmol/L (98-107); Estimated Creatinine Clearance 78 ml/min; Glucose 103 mg/dl (70-99); Potassium 4.3 mmol/L (3.5-5.1); Sodium 140 mmol/L (135-145); Total Bilirubin 0.7 mg/dl (0.2-1.3); Total Protein 5.6 g/dl (6.3-8.2); eGFR > 60.00
[2024-09-10] MEDS: HALDOL 2 MG PO ×2 (08:37→19:54)
[2024-09-10] MEDS: ProAmatine 5 MG PO ×3 (08:37→17:52)
[2024-09-10] MEDS: NOVOLOG FLEXPEN-LOW RESISTANCE SC ×2 (08:37→12:08)
[2024-09-10] MEDS: VIBRAMYCIN 100 MG PO ×2 (08:37→20:04)
[2024-09-10 08:46] LABS: Glucose - Point of Care 97 mg/dl (70-99)
--- NOTE | 2024-09-10 10:58 | W.PN.HOSP.TC ---
Addendum entered and electronically signed by Benton Hernández MD 09/10/24 16:02:
updated daughter over the phone in details. She was appreciated for updates.
Daughter did state that patient was a chronic alcoholic and drank for approximately 40+ years. Explains patient abnormal LFTs
Original Note:
Today's Communication/Plan
-
IV abx
tx out of IMU
Monitor BP
trend lfts
Assessment / Plan
Assessment / Plan
General: Well Developed, Well Nourished, No Apparent Distress, Comfortable
HEENT: NormoCephalic, Moist mucous membranes, Atraumatic, , Nose Appears Normal and Ears Appear Normal
Respiratory: Clear, Labored Respirations
Cardiac: S1/S2 and Regular Rhythm; No Murmur, Rub or Gallop
GI: Soft, Non Tender, Non Distended and Normal Bowel Sounds; No Organomegaly
Musculoskeletal: No Clubbing, No Cyanosis and No Edema
Skin: No Rash
Neuro: Awake, Alert and Nonfocal/grossly intact
Hematologic/Lymphatic: No Lymphadenopathy
Psych: Calm and Intact Judgment/Insight
#Sepsis 2/2 aspiration pneumonia -poa
CXR: Moderate right basilar pneumonia
Head CT: There are no focal or acute intracranial abnormalities There is moderate diffuse cortical and cerebellar atrophy
- Blood cultures in lab-negative so far.
- UA normal
- Covid and Influenza negative
- trend Lactic-wnl
- PRN Albuterol Nebs
- IV Ceftriaxone
- PO Doxycycline
- DC further IVF. Start patient on midodrine.
Dysphagia
-Diet downgraded to pur�ed diet. Status post video swallow evaluation recommending mildly thick liquid.
# Toxic metabolic encephalopathy likely secondary to sepsis versus dehydration versus worsening of psych disorder
-Monitor mentation. Continue with Haldol. Seems at baseline. Not agitated.
#Huntingtons disease
#schizophrenia
- continue haloperidol and mirtazapine
# Transaminitis likely secondary to sepsis
-Trend for now. T.bili trended down. No abd pain or nausea or vomiting. No RUQ pain. Check RUQ u/s. Check GGT.
#hyperlipidemia
#anorexia
Code Status: Full Code
DVT Prophylaxis: Lovenox
Anticipated Discharge: Within 24 hours
Subjective/Interval History
-
Date of Service: September 10, 2024
oxygen was taken off by patient. O2 sats stable. plan to wean off oxygen
Objective Data
-
Labs:
Laboratory Results
09/10/24 09/10/24
04:26 04:27
WBC 6.5
Hgb 12.0
Hct 37.2
Plt Count 157
Sodium 140
Potassium 4.3
Chloride 109 H
Carbon Dioxide 24
BUN 17
Creatinine 0.6
Glucose 103 H
Calcium 8.5
Total Bilirubin 0.7
AST 63 H
ALT 57 H
Alkaline Phosphatase 46
Vital Signs:
Vital Signs
Temp Pulse Resp BP Pulse Ox
98.4 F 81 29 119/68 93
09/10/24 07:50 09/10/24 10:28 09/10/24 10:28 09/10/24 10:28 09/10/24 10:28
I&O
09/09/24 09/10/24 09/11/24
06:59 06:59 06:59
Intake Total 2600 / 2600
Output Total 1300 / 1300
Balance 1300 / 1300
Data Reviewed
-
Total Time Spent with Patient (in minutes): 55
[2024-09-10 11:59] LABS: GGTP 12 U/L (12-43)
[2024-09-10 12:15] LABS: Glucose - Point of Care 112 mg/dl (70-99)
[2024-09-10 16:24] LABS: Glucose - Point of Care 157 mg/dl (70-99)
--- NOTE | 2024-09-10 16:52 | PTCARENOTE ---
1410 Pt received from IMU in bed. Pt AAo to person and place. Pt reoriented to time, environment and staff. Personal items and call light within reach. Bed alarm armed and audible. No distress noted at this time.
[2024-09-10] MEDS: LOVENOX 40 MG SC (17:35)
[2024-09-10] MEDS: NOVOLOG FLEXPEN-LOW RESISTANCE 1 UNITS SC (17:44)
[2024-09-10] MEDS: ROCEPHIN 1000 MG IV (20:00)
[2024-09-10] MEDS: FLUSH (NSS) 1 FLUSH IV ×2 (20:00→20:01)
[2024-09-10] MEDS: STERILE WATER FOR INJECTION 10 ML IV (20:01)
[2024-09-10 21:43] LABS: Glucose - Point of Care 139 mg/dl (70-99)
[2024-09-10] MEDS: SENOKOT 17.2 MG PO (22:20)
[2024-09-10] MEDS: REMERON 15 MG PO (22:25)
[2024-09-11] VITALS (7 sets, daily range): BP systolic 69–135; BP diastolic 64–84; BMI 17.3
[2024-09-11 07:12] LABS: Glucose - Point of Care 92 mg/dl (70-99)
[2024-09-11] MEDS: NOVOLOG FLEXPEN-LOW RESISTANCE SC ×2 (07:37→11:44)
[2024-09-11] MEDS: VIBRAMYCIN 100 MG PO ×2 (07:39→20:57)
[2024-09-11] MEDS: ProAmatine 5 MG PO ×2 (07:40→17:30)
[2024-09-11] MEDS: HALDOL 2 MG PO ×2 (07:40→20:57)
--- NOTE | 2024-09-11 07:58 | PN.CDI ---
CDI
- -
CDI:
Physician Documentation Request
Admit Date: 09/08/24 21:13
Dear Doctor Betty,
Please review the following and provide your response in the progress notes.
Clinical Indicators:
Piano Case Maker, 09/09
#Initial assessment due to BMI: 17.9 (underweight).
#PMH: schizophrenia, huntingtons disease, HLD, anorexia
#Current BW: (09/09) 132 lbs 0.91 oz BMI: 17.9 (underweight)
Based on the above and your clinical assessment, please provide an associated diagnosis related to the BMI,...:
BMI, 17.9, underweight
Other(please specify
BMI < or = to 19
Underweight
Weight Loss
Cachectic
Anorexia
Use of terms such as suspected, likely, concern for, or probable (associated with a specific diagnosis that is being evaluated, monitored, or treated as if it exists) are acceptable and can be coded in the inpatient setting, when documented at the
time of discharge.
Thank you,
Carmen Sorensen RN BSN CCDS
CDI Specialist
please contact via tiger text
Please use your independent medical judgment in providing your response.
--- NOTE | 2024-09-11 08:04 | PN.CDI ---
CDI
- -
CDI:
Physician Documentation Request
Admit Date: 09/08/24 21:13
Dear Doctor Betty,
Please review the following and provide your response in the progress notes.
Clinical Indicators:
09/08, ED
Pulm: Hypoxic with O2 of 88 on room air. Placed on 6 L nasal cannula. Coarse lung sounds.
Selected Entries
09/08/24
16:55 09/08/24
18:28
Nasal Cannula flow liters per minute 6 6
Based on the above and your clinical assessment, please clarify which of the following accurately represents the patient's respiratory status:
Acute respiratory failure
Acute respiratory failure, POA, now resolved
Hypoxia
Other(please specify)
Additional information for Respiratory Failure:
Recognized criteria for Respiratory Failure (Source: [facility] Hospitalist Jul 2013)
Symptoms Please indicate type if known
1. Tachypnea, SOB, dyspnea Hypoxic
2. Use of accessory muscles Hypercapnic
3. Pallor or cyanosis Hypoxic and Hypercapnic
4. Anxiety or restlessness
5. Unable to speak in full sentences
Supplemental O2 of > 40% (5LPM) Intubation is not required
Use of terms such as suspected, likely, concern for, or probable (associated with a specific diagnosis that is being evaluated, monitored, or treated as if it exists) are acceptable and can be coded in the inpatient setting, when documented at the
time of discharge.
Thank you,
Carmen Sorensen PACKAGE DESIGNER CCDS
CDI Specialist
pl;ease contact via tiger text
Please use your independent medical judgment in providing your response.
[2024-09-11 08:09] LABS: Hematocrit 37.3 % (37.0-47.0); Hemoglobin 12.6 g/dL (12.0-16.0); Mean Corp Hgb Conc. 33.8 g/dL (33.0-37.0); Mean Corpuscular Hgb 32.2 pg (27.0-31.0); Mean Corpuscular Volume 95.4 fL (81.0-99.0); Mean Platelet Volume 10.3 fL (7.4-10.4); Platelet Count 188 10^3/uL (130-400); Red Blood Cell Count 3.91 10^6/uL (4.20-5.40); Red Cell Dist. Width 12.5 % (11.5-14.5); White Blood Cell Count 4.3 10^3/uL (4.8-10.8)
[2024-09-11 08:31] LABS: ALT (SGPT) 60 U/L (0-35); AST (SGOT) 52 U/L (14-36); Albumin 3.2 g/dl (3.5-5.0); Alkaline Phosphatase 55 U/L (38-126); Blood Urea Nitrogen 22 mg/dl (7-17); Calcium 8.4 mg/dl (8.4-10.2); Carbon Dioxide 27 mmol/L (22-30); Chloride 104 mmol/L (98-107); Estimated Creatinine Clearance 75 ml/min; Glucose 95 mg/dl (70-99); Potassium 4.1 mmol/L (3.5-5.1); Sodium 139 mmol/L (135-145); Total Bilirubin 0.8 mg/dl (0.2-1.3); Total Protein 6.1 g/dl (6.3-8.2); eGFR > 60.00
[2024-09-11 11:13] LABS: % Basophils 0.5 % (0-2); % Eosinophils 1.6 % (0-6); % Immature Granulocytes 0.5 % (0-0.5); % Lymphocytes 31.3 % (20.5-51.1); % Monocytes 6.1 % (1.7-9.3); Absolute Eosinophils 0.1 10^3/uL (0-0.7); Absolute Lymphocytes 1.3 10^3/uL (1.2-3.4); Absolute Monocytes 0.3 10^3/uL (0.1-0.6); Absolute Neutrophils 2.6 10^3/uL (1.4-6.5); Nucleated Red Blood Cells % 0 %
--- NOTE | 2024-09-11 11:22 | W.PN.HOSP.TC ---
Today's Communication/Plan
-
IRAD for thora
Cont with abx
Assessment / Plan
Assessment / Plan
General: Well Developed, Well Nourished, No Apparent Distress, Comfortable
HEENT: NormoCephalic, Moist mucous membranes, Atraumatic, , Nose Appears Normal and Ears Appear Normal
Respiratory: Clear, Labored Respirations
Cardiac: S1/S2 and Regular Rhythm; No Murmur, Rub or Gallop
GI: Soft, Non Tender, Non Distended and Normal Bowel Sounds; No Organomegaly
Musculoskeletal: No Clubbing, No Cyanosis and No Edema
Skin: No Rash
Neuro: Awake, Alert and Nonfocal/grossly intact
Hematologic/Lymphatic: No Lymphadenopathy
Psych: Calm and Intact Judgment/Insight
#Sepsis 2/2 aspiration pneumonia -poa
# Acute hypoxic respiratory failure, poa now resolved
CXR: Moderate right basilar pneumonia
Head CT: There are no focal or acute intracranial abnormalities There is moderate diffuse cortical and cerebellar atrophy
- Blood cultures in lab-negative so far.
- UA normal
- Covid and Influenza negative
- trend Lactic-wnl
- PRN Albuterol Nebs
- IV Ceftriaxone and switch to po on dc.
- PO Doxycycline
- DC further IVF. Start patient on midodrine with hold parameters.
Dysphagia
-Diet downgraded to pur�ed diet. Status post video swallow evaluation recommending mildly thick liquid.
#Possible left pleural effusion
Pleural effusion on abdominal ultrasound.
IRAD for thoracentesis. Labs ordered.
# Toxic metabolic encephalopathy likely secondary to sepsis versus dehydration versus worsening of psych disorder
-Monitor mentation. Continue with Haldol. Seems at baseline. Not agitated.
#Huntingtons disease
#schizophrenia
- continue haloperidol and mirtazapine
# Transaminitis likely secondary to sepsis and hx of severe alcohol abuse
-stable. T.bili normal. GGT normal. Alk phos normal. Abd US noted. Tolerating diet.
#hyperlipidemia
#anorexia
underweight
Code Status: Full Code
DVT Prophylaxis: Lovenox
update daughter over the phone in details on 09/10/24 and 09/11/24
Anticipated Discharge: 24 - 48 hours
Subjective/Interval History
-
Date of Service: September 11, 2024
on room air
states tolerating diet
states coughing has reduce significantly
Objective Data
-
Labs:
Laboratory Results
09/11/24
07:38
WBC 4.3 L
Hgb 12.6
Hct 37.3
Plt Count 188
Sodium 139
Potassium 4.1
Chloride 104
Carbon Dioxide 27
BUN 22 H
Creatinine 0.6
Glucose 95
Calcium 8.4
Total Bilirubin 0.8
AST 52 H
ALT 60 H
Alkaline Phosphatase 55
Vital Signs:
Vital Signs
Temp Pulse Resp BP Pulse Ox
97.9 F 66 17 135/84 92
09/11/24 11:21 09/11/24 11:21 09/11/24 11:21 09/11/24 11:21 09/11/24 11:21
I&O
09/10/24 09/11/24 09/12/24
06:59 06:59 06:59
Intake Total 2600 / 2600 360 / 360
Output Total 1300 / 1300
Balance 1300 / 1300 360 / 360
Data Reviewed
-
Total Time Spent with Patient (in minutes): 55
[2024-09-11 11:42] LABS: Glucose - Point of Care 91 mg/dl (70-99)
[2024-09-11] MEDS: ProAmatine PO (13:27)
[2024-09-11 14:58] LABS: LDH 249 U/L (120-246)
[2024-09-11 16:23] LABS: Glucose - Point of Care 162 mg/dl (70-99)
[2024-09-11] MEDS: NOVOLOG FLEXPEN-LOW RESISTANCE 1 UNITS SC (17:24)
[2024-09-11] MEDS: LOVENOX 40 MG SC (17:26)
[2024-09-11] MEDS: FLUSH (NSS) 1 FLUSH IV ×2 (20:52)
[2024-09-11] MEDS: REMERON 15 MG PO (20:56)
[2024-09-11] MEDS: ROCEPHIN 1000 MG IV (20:57)
[2024-09-11] MEDS: SENOKOT 17.2 MG PO (20:57)
[2024-09-11] MEDS: STERILE WATER FOR INJECTION 10 ML IV (20:57)
[2024-09-11 21:58] LABS: Glucose - Point of Care 96 mg/dl (70-99)
[2024-09-12 03:50] VITALS: BP 121/67
[2024-09-12 06:00] VITALS: BMI 20.6
[2024-09-12 07:13] VITALS: BP 111/68
[2024-09-12 07:50] LABS: ALT (SGPT) 49 U/L (0-35); AST (SGOT) 36 U/L (14-36); Albumin 3.2 g/dl (3.5-5.0); Alkaline Phosphatase 57 U/L (38-126); Blood Urea Nitrogen 24 mg/dl (7-17); Calcium 8.6 mg/dl (8.4-10.2); Carbon Dioxide 33 mmol/L (22-30); Chloride 104 mmol/L (98-107); Estimated Creatinine Clearance 56 ml/min; Glucose 100 mg/dl (70-99); Potassium 4.7 mmol/L (3.5-5.1); Sodium 140 mmol/L (135-145); Total Bilirubin 0.6 mg/dl (0.2-1.3); eGFR > 60.00
[2024-09-12 07:53] LABS: Glucose - Point of Care 90 mg/dl (70-99)
[2024-09-12 08:28] LABS: % Basophils 0.5 % (0-2); % Eosinophils 1.6 % (0-6); % Immature Granulocytes 0.5 % (0-0.5); % Lymphocytes 26.5 % (20.5-51.1); % Monocytes 6.9 % (1.7-9.3); Absolute Eosinophils 0.1 10^3/uL (0-0.7); Absolute Lymphocytes 1.6 10^3/uL (1.2-3.4); Absolute Monocytes 0.4 10^3/uL (0.1-0.6); Absolute Neutrophils 3.9 10^3/uL (1.4-6.5); Hematocrit 38.2 % (37.0-47.0); Hemoglobin 12.6 g/dL (12.0-16.0); Mean Corpuscular Hgb 32.1 pg (27.0-31.0); Mean Corpuscular Volume 97.2 fL (81.0-99.0); Mean Platelet Volume 10.4 fL (7.4-10.4); Nucleated Red Blood Cells % 0 %; Platelet Count 243 10^3/uL (130-400); Red Blood Cell Count 3.93 10^6/uL (4.20-5.40); Red Cell Dist. Width 12.7 % (11.5-14.5); White Blood Cell Count 6.1 10^3/uL (4.8-10.8)
[2024-09-12] MEDS: NOVOLOG FLEXPEN-LOW RESISTANCE SC ×3 (08:47→17:27)
[2024-09-12] MEDS: HALDOL 2 MG PO (08:52)
[2024-09-12] MEDS: VIBRAMYCIN 100 MG PO (08:53)
[2024-09-12] MEDS: ProAmatine PO (09:25)
--- NOTE | 2024-09-12 10:57 | W.PN.HOSP.TC ---
Today's Communication/Plan
-
dc
po abx
Assessment / Plan
Assessment / Plan
General: Well Developed, Well Nourished, No Apparent Distress, Comfortable
HEENT: NormoCephalic, Moist mucous membranes, Atraumatic, , Nose Appears Normal and Ears Appear Normal
Respiratory: Clear, Labored Respirations
Cardiac: S1/S2 and Regular Rhythm; No Murmur, Rub or Gallop
GI: Soft, Non Tender, Non Distended and Normal Bowel Sounds; No Organomegaly
Musculoskeletal: No Clubbing, No Cyanosis and No Edema
Skin: No Rash
Neuro: Awake, Alert and Nonfocal/grossly intact
Hematologic/Lymphatic: No Lymphadenopathy
Psych: Calm and Intact Judgment/Insight
#Sepsis 2/2 aspiration pneumonia -poa
# Acute hypoxic respiratory failure, poa now resolved
CXR: Moderate right basilar pneumonia
Head CT: There are no focal or acute intracranial abnormalities There is moderate diffuse cortical and cerebellar atrophy
- Blood cultures in lab-negative so far.
- UA normal
- Covid and Influenza negative
- trend Lactic-wnl
- PRN Albuterol Nebs
- IV Ceftriaxone and switch to po on dc.
- PO Doxycycline
- DC further IVF. Start patient on midodrine with hold parameters.
Dysphagia
-Diet downgraded to pur�ed diet. Status post video swallow evaluation recommending mildly thick liquid.
#Possible left pleural effusion
Pleural effusion on abdominal ultrasound.
IRAD for thoracentesis. Per IRAD- not enough fluid for thora on Chest US.
# Toxic metabolic encephalopathy likely secondary to sepsis versus dehydration versus worsening of psych disorder
-Monitor mentation. Continue with Haldol. Seems at baseline. Not agitated.
#Huntingtons disease
#schizophrenia
- continue haloperidol and mirtazapine
# Transaminitis likely secondary to sepsis and hx of severe alcohol abuse
-stable. T.bili normal. GGT normal. Alk phos normal. Abd US noted. Tolerating diet.
#hyperlipidemia
#anorexia
underweight
Code Status: Full Code
DVT Prophylaxis: Lovenox
update daughter over the phone in details on 09/10/24 and 09/11/24
More than 30 minutes spent in discharge including
Final examination of the patient
Summarizing hospital stay
Instructions for continuing care to all relevant caregivers
Preparation of discharge records, prescriptions, and referral forms
Total time spent (in minutes): 50
Anticipated Discharge: Today
Subjective/Interval History
-
Date of Service: September 12, 2024
on room air
denies severe cough
Objective Data
-
Labs:
Laboratory Results
09/12/24
06:20
WBC 6.1
Hgb 12.6
Hct 38.2
Plt Count 243 D
Sodium 140
Potassium 4.7
Chloride 104
Carbon Dioxide 33 H
BUN 24 H
Creatinine 0.8
Glucose 100 H
Calcium 8.6
Total Bilirubin 0.6
AST 36
ALT 49 H
Alkaline Phosphatase 57
Vital Signs:
Vital Signs
Temp Pulse Resp BP Pulse Ox
98.5 F 69 16 111/72 95
09/12/24 07:13 09/12/24 09:25 09/12/24 07:13 09/12/24 09:25 09/12/24 07:13
I&O
09/11/24 09/12/24 09/13/24
06:59 06:59 06:59
Intake Total 360 / 360 720 / 720
Balance 360 / 360 720 / 720
--- NOTE | 2024-09-12 11:01 | W.DCSUMMARY ---
Discharge Summary
Discharge Data
Date of Admission: 09/08/24
Date of Discharge: 09/12/24
-
Pending Results: No
Hospital Course
74-year-old female past medical history of [place] disease, schizophrenia, chronic alcohol abuse presenting from senior care with altered mental status and hypoxemia. Patient underwent imaging which showed right basilar pneumonia. CT head was
done no focal acute intercranial abnormality. There is a moderate diffuse cortical and cerebellar atrophy. Blood cultures in lab were negative. UA was normal. COVID influenza was negative. Lactic acid was within normal limits. Patient was
started on IV antibiotics. Patient was started on ceftriaxone and doxycycline. Patient was eval by speech and swallow and underwent video swallow evaluation which showed aspiration with thin liquids does pur�ed diet with mildly thick liquid was
consulted recommended. patient underwent abdominal ultrasound which showed suspected left pleural effusion and interventional radiology was consulted who did bedside ultrasound chest with did not show any pleural effusion. Thoracentesis was
canceled. Patient was off oxygen was stable on room air. Patient mentation seems to be back to baseline. Patient was tolerating diet. Patient be discharged back to previous living situation.
Discharge Plan
-
Patient Disposition: Jail/SNF
Discharge Diagnosis/Procedures: Sepsis secondary to aspiration pneumonia
Acute hypoxic respiratory failure
Toxic metabolic encephalopathy
Dysphagia
Condition: Fair
Diet: Other diet
Additional Diets: Recommend:
(1) IDDSI Level 4 (Puree) and Mildly thick liquids
(2) Aspiration precautions: full supervision with assist as needed, slow rate, sit upright
(3) Meds crushed in puree as able
(4) Recommend PUNCH MACHINE OPERATOR consult at SNF for diet upgrade.
Activity: With assistance and As tolerated
Driving Restrictions: No driving
Other Services: ST
Referrals:
Caleb Maguire I., DO [Family Provider] -
Prescriptions:
New
midodrine 5 mg Tablet
5 mg PO TID@0800,1300,1800 Qty: 90 0RF
Rx Instructions:
Hold for SBP>110
doxycycline hyclate 100 mg Capsule
100 mg PO Q12 2 Days Qty: 4 0RF
cefdinir 300 mg capsule
300 mg PO BID Qty: 4 0RF
Probiotic 3 billion cell capsule
3,000 mmu cells PO DAILY Qty: 14 0RF
Continued
acetaminophen 325 mg Tablet
650 mg PO Q4HPRN PRN (Reason: mild pain/temp>101)
haloperidol 5 mg Tablet
5 mg PO DAILY
magnesium hydroxide [Milk of Magnesia] 400 mg/5 mL Suspension
30 ml PO P20BQDP PRN (Reason: no bm in 3 days)
bisacodyl [Dulcolax (bisacodyl)] 10 mg Suppository
10 mg SD DAILYPRN PRN (Reason: if mom ineffective after 24 hrs)
Fleet Enema 19-7 gram/118 mL Enema
118 ml SD DAILYPRN PRN (Reason: constipation)
mirtazapine [Remeron] 15 mg Tablet
15 mg PO HS
haloperidol 2 mg Tablet
2 mg PO BID
coal tar 0.5 % Shampoo
1 applic TOPICAL TUFR
Discharge Orders:
Discharge Patient (As Directed); Ordered 09/12/24
Ordered By: Benton Hernández
Discharge Date and Time
Print Language: AZERI
[2024-09-12 11:52] LABS: Glucose - Point of Care 131 mg/dl (70-99)
--- NOTE | 2024-09-12 11:55 | PTCARENOTE ---
Patient had two large loose bowel movements observed. C diff sent per protocol. made aware, new order provided, see MAR.
[2024-09-12 12:00] VITALS: BP 109/66
[2024-09-12 12:21] VITALS: BP 127/63; PULSE 78; O2SAT 92
[2024-09-12] MEDS: VISBIOME 2 CAP PO (13:05)
[2024-09-12] MEDS: ProAmatine 5 MG PO ×2 (13:46→18:11)
--- NOTE | 2024-09-12 14:59 | CM ---
Received update from attending that patient is medically cleared for discharge. Placed a call to patient's daughter [phone] however there was only a busy signal. Placed a call to [facility] and call was transferred to the third floor where patient
resides. Spoke with one of her RNs, Krissy, who confirmed that patient can return today # For report [phone] fax# [phone].
Spoke with patient and reviewed discharge. She had some concerns about the ability for the NH to supply incontinence products and stated that she feels she needs her tele monitor. Patient's RN went in to visit patient to calm her down and reassure
her that the NH will have the incontinence products and she no longer needs to be monitored.
Patient was asked if she has any family who needed update and she stated no. Reviewed IMM however she could not sign.
Plan: Case management will continue to follow and assist with discharge planning. Back to [facility].
[2024-09-12 15:54] VITALS: BP 117/65
[2024-09-12 17:00] LABS: Glucose - Point of Care 113 mg/dl (70-99)
--- NOTE | 2024-09-12 17:23 | PTCARENOTE ---
Patient scheduled for ambulance pickup at 1930. Attempted to call report to this number four times, [phone], placed on hold each time and was hung up on.
[2024-09-12] MEDS: LOVENOX 40 MG SC (18:05)
[2024-09-12 19:40] VITALS: BP 136/98
== END 2024-09-12 19:25 | DRG 871 ==
LOC: 3 WEST ACU 21:13
PROVIDERS: Physician Assistant; ADMITTING PHYSICIAN Hospitalist; ATTENDING PHYSICIAN Hospitalist; EMERGENCY PHYSICIAN Student in an Organized Health Care Education/Training Program; FAMILY PHYSICIAN Internal Medicine
DX: A41.9 Sepsis, unspecified organism (principal); G92.8 Other toxic encephalopathy; J96.01 Acute respiratory failure with hypoxia; J69.0 Pneumonitis due to inhalation of food and vomit; G10 Huntington's disease; Z68.1 Body mass index [BMI] 19.9 or less, adult; E78.5 Hyperlipidemia, unspecified; F03.A0 Unspecified dementia, mild, without behavioral disturbance, psychotic disturbance, mood disturbance, and anxiety; F20.9 Schizophrenia, unspecified; F10.10 Alcohol abuse, uncomplicated; R63.6 Underweight; R74.01 Elevation of levels of liver transaminase levels; R13.10 Dysphagia, unspecified; Z87.891 Personal history of nicotine dependence
CPT/HCPCS: 70450; 71046; 74230; 76604; 76700; 80053; 81003; 81015; 82248; 82962; 82977; 83036; 83605; 83615; 83735; 84443; 85025; 85027; 87040; 87324; 87449; 87502; 87811; 92526; 92610; 92611; 93005; 96361; 96365; 96375; 97116; 97163; 97167; 97530; 99285